=== PATIENT | female | born 1995 | race Caucasian/White ===

== ENCOUNTER 2018-06-17 16:30 | Emergency (ER) | payer OTHER | END 2018-06-17 20:56 | disposition home or self-care (01) | LOC: FTE 16:30 | DX: T83.39XA Other mechanical complication of intrauterine contraceptive device, initial encounter (principal); R40.2412 Glasgow coma scale score 13-15, at arrival to emergency department; F17.210 Nicotine dependence, cigarettes, uncomplicated; Y76.8 Miscellaneous obstetric and gynecological devices associated with adverse incidents, not elsewhere classified | CPT/HCPCS: 76830; 76856; 99284-25 ==